=== PATIENT | female | born 1970 | race Caucasian/White ===

== ENCOUNTER 2019-11-21 11:42 | Emergency (ER) | payer BC, SELFPAY ==
[2019-11-21] VITALS (7 sets, daily range): BP systolic 94–153; BP diastolic 59–94; PULSE 62–214; RESP 16–28; TEMP 36.4–37.1; O2SAT 97–100; BMI 36.8
--- NOTE | 2019-11-21 11:49 | EKG12_ITS ---
Test Reason : Blood Pressure : / mmHG Vent. Rate : 081 BPM Atrial Rate : 081 BPM P-R Int : 144 ms QRS Dur : 088 ms QT Int : 400 ms P-R-T Axes : 051 073 044 degrees QTc Int : 464 ms Normal sinus rhythm Nonspecific ST abnormality Abnormal ECG Confirmed by MACKENZIE PITTS, CHEVY ([id number]), telegraph editor VERENA RUSS ([id number]) on 11/23/2019 2:13:10 PM Referred By: MANISH Confirmed By:GARY MANN MD
--- NOTE | 2019-11-21 11:49 | RAD_ITS ---
STUDY: X-RAY CHEST REASON FOR EXAM: Female, 49 years old. tachycardia TECHNIQUE: AP COMPARISON: None. FINDINGS: EKG leads project over the chest. The lungs are clear and expanded. There is no demonstrated pleural abnormality. Normal size heart. Normal mediastinum and tanner. Normal visualized pulmonary arteries. There is atherosclerotic tortuosity of the aortic arch and descending thoracic aorta. No acute bony process. There is no demonstrated abnormality of the visualized soft tissue structures of the upper abdomen. RAD/Chest 1 View (Portable) IMPRESSION: Nonacute portable x-ray examination of the chest. Electronically Signed: Michael Cortes MD (Brooks) at 12:37 EST , Service support ,
[2019-11-21] MEDS: Adenosine 6 MG/2 ML Syringe IV (11:53)
--- NOTE | 2019-11-21 11:53 | EKG12_ITS ---
Test Reason : Blood Pressure : / mmHG Vent. Rate : 210 BPM Atrial Rate : 104 BPM P-R Int : 000 ms QRS Dur : 084 ms QT Int : 248 ms P-R-T Axes : 000 078 171 degrees QTc Int : 463 ms Supraventricular tachycardia Marked ST abnormality, possible inferolateral subendocardial injury Abnormal ECG Confirmed by MACKENZIE PITTS, CHEVY ([id number]), newspaper managing editor CRESENCIO BAKER ([id number]) on 11/24/2019 1:31:01 PM Referred By: Confirmed By:GARY MANN MD
[2019-11-21] MEDS: Ondansetron 4 MG/2 ML Vial IV ×2 (11:57→13:53)
[2019-11-21] MEDS: 0.9% Normal Saline 1,000 ML 150 ML IV (12:08)
[2019-11-21 12:32] LABS: Absolute Lymphocyte Count 1.51 X10^3/uL (0.83-4.51); Absolute Neutrophil Count 8.6 X10^3/uL (2.0-7.7); Basophil# 0.06 X10^3/uL; Basophil% 0.5 % (0-1); Eosinophils% 0.9 % (0-5); Hematocrit 41.5 % (37-47); Hemoglobin 13.3 g/dL (12.0-15.0); Lymphocyte # 1.51 X10^3/ul (4.0); Lymphocyte % 13.6 % (19-41); Mean Corpuscular Hgb 29.6 pg (27.0-32.0); Mean Corpuscular Volume 92.2 fL (81-99); Mean Platelet Vol. 9.8 fl (6.2-12.0); Monocyte# 0.89 X10^3/uL; NRBC Flagged by Analyzer 0 % (0-5); Neutrophil # 8.55 X10^3/uL (2.7-7.7); Neutrophil % 76.7 % (47-70); Platelet Count 395 K/mm3 (150-450); RBC Distribution Width CV 13.2 % (11.6-14.6); RBC Distribution Width SD 44.7 fl (35.1-43.9); White Blood Count 11.1 K/mm3 (4.4-11.0)
[2019-11-21 12:59] LABS: Anion Gap 10 (5-15); BUN 16 mg/dL (7-18); Calcium,Total 8.8 mg/dL (8.5-10.1); Chloride 108 mmol/L (98-107); Creatinine, Serum 1.23 mg/dL (0.55-1.02); EST Glomerular Filtration Rate 50 mL/min (>60); Est Glom Filt Rate - Afr Amer 60 mL/min (>60); Estimated Creatinine Clearance 54.39 ml/min; Glucose 101 mg/dL (74-106); Potassium 3.8 mmol/L (3.5-5.1); Sodium Level 140 mmol/L (136-145); Thyroid Stim Hormone (TSH) 1.45 uIU/mL (0.358-3.74)
--- NOTE | 2019-11-21 13:29 | ED.VISSUMM ---
- ER Visit Summary Date of Service: 11/21/19 Chief Complaint: [Tachycardia and dizziness] History of Present Illness: The patient is a 49 F [does the emergency department with complaint of dizziness that started suddenly while at the breakfast table around 9 AM. Patient like her heart was racing. Patient felt very nauseated with it. Patient had similar episode last time in 2004 when she was diagnosed with SVT. Patient had been on a metoprolol type medication for years and then discontinued it. She has not been having chest pain with activity or shortness of breath with activity. She denies recent travel or surgery. She otherwise has no medical history.] Physical Examination: [HEENT-PERRLA, EOMI. Cranial nerves II through XII grossly intact. TMs clear. Mucous membranes moist. No adenopathy. Cardiovascular-regular and tachycardic with heart rate in the 210s Lungs-clear to auscultation, chest wall stable without crepitus or subcu emphysema Abdomen-normoactive bowel sounds, soft, nontender, no rebound or rigidity, no peritoneal signs. Extremities-intact ?4, normal range of motion, normal pulses, atraumatic] Test Results: [EKG obtained arrival showed SVT with a ventricular rate of 210 bpm. Repeat EKG after adenosine showed sinus rhythm with a ventricular rate of 81 bpm with some nonspecific ST changes noted. CBC with differential obtained was unremarkable. Chemistries unremarkable. TSH was normal at 1.45. Troponin was slightly elevated 0.227. Chest x-ray showed nothing acute.] Emergency Department Course and Treatment: [Patient was kept on a monitor tech. Discussed case with cardiology on-call who did not feel patient required admission or further work-up at this time. Patient was asked to be started on baby aspirin and metoprolol XL 50 mg daily. Patient also was instructed to follow-up with cardiology within the next week.] Treatment Plan: Follow-up with cardiology within the week. Patient will be started on metoprolol. Patient will be given Zofran for nausea. Patient advised to use 1 baby aspirin daily. [] Disposition: [Discharged home in stable condition] Impression: [Supraventricular tachycardia] This note was generated with woohoo mobile marketingation software. It may contain incorrect words, spelling, and punctuation that were not noted in review of the chart prior to signing ED Disposition - Plan for ED Patient: Referrals: Care Physician,No Primary [Primary Care Provider] -
--- NOTE | 2019-11-21 13:33 | DCINST.ED_ITS ---
ED Disposition - Plan for ED Patient: Instructions: Pat (P.A.T.) Prescriptions: Metoprolol(XL)Succ [Toprol Xl (Beta Jw)] 50 mg PO DAILY #30 tab Transmission Status: Pending to [facility] #30 - [place] Referrals: Care Physician,No Primary [Primary Care Provider] - Richard Ryan MD [STAFF PHYSICIAN] - 5-7 Days Additional Instructions: take a baby aspirin daily
--- NOTE | 2019-11-21 13:36 | DCINST.ED_ITS ---
ED Disposition - Plan for ED Patient: Instructions: Lizzy (P.A.T.) Prescriptions: Metoprolol(XL)Succ [Toprol Xl (Beta Jw)] 50 mg PO DAILY #30 tab Transmission Status: Received by [facility] - [place] Ondansetron [Zofran Odt] 4 mg PO Q8H PRN PRN #10 tab PRN Reason: Nausea Transmission Status: Pending to [facility] - [place] Referrals: Richard Ryan MD [STAFF PHYSICIAN] - 5-7 Days Care Physician,No Primary [Primary Care Provider] - Additional Instructions: take a baby aspirin daily
[2019-11-21] MEDS: Metoprolol(XL)Succ 50 MG Tablet PO (14:02)
[2019-11-21] MEDS: Aspirin 81 MG TAB.CHEW PO (14:02)
== END 2019-11-21 14:20 | disposition home or self-care (01) ==
LOC: ED 12:06
PROVIDERS: Emergency Provider Emergency Medicine
DX: I47.1 Supraventricular tachycardia (principal)
CPT/HCPCS: 71045; 80048; 84443; 84484; 85025; 93005; 96361; 96374; 96375; 96376; 99285; J7030; A4216; J0153; J2405

== ENCOUNTER → 2019-12-24 09:45 | Outpatient (CLI) | payer BC, SELFPAY ==
[2019-12-16 14:30] VITALS: BMI 37.9
--- NOTE | 2019-12-24 09:47 | ECHOD_ITS ---
Reason For Study: ARRHYTHMIA Procedure This was a 2D Doppler, Color Flow transthoracic echocardiogram. Exam performed in department. Left Ventricle Normal LV size. Left ventricular systolic function is normal. The estimated ejection fraction is 60 %. Stage 2 diastolic dysfunction. No regional wall motion abnormalities noted. Right Ventricle Normal RV size. Normal systolic function. Atria Normal left atrium. Normal right atrium. Mitral Valve Normal mitral valve. Tricuspid Valve Normal tricuspid valve. Mild (1+) tricuspid valve insufficiency. Pulmonary artery systolic pressure is 26 mmHg. Aortic Valve Normal aortic valve. Trisinus/trileaflet aortic valve. Pulmonic Valve Normal pulmonic valve. Great Vessels Normal aortic root. The pulmonary artery is normal size. Normal inferior vena cava. Pericardium/Pleural No pericardial effusion. MMode/2D Measurements & Calculations LVIDd: 4.8 cm IVSd: 0.91 cm Ao root diam: 2.9 cm LVIDs: 2.9 cm LVPWd: 0.91 cm RVDd: 4.2 cm FS: 40.0 % LAV(MOD-bp): 62.2 ml LA A4 area: 21.2 cm2 LA dimension(2D): 4.0 cm LAV(MOD-bp) Indexed: 28.5 ml/m2 LAV(MOD-sp2): 58.9 ml LAV(MOD-sp4): 58.8 ml RA A4 area: 12.2 cm2 Doppler Measurements & Calculations MV E max mark: 98.9 cm/sec Lat Peak E' Mark: 11.4 cm/sec Med Peak E' Mark: 10.6 cm/sec MV A max mark: 80.8 cm/sec E/E' lat: 8.7 E/E' med: 9.3 MV E/A: 1.2 Ao V2 max: 159.2 cm/sec LV V1 max: 120.8 cm/sec PA V2 max: 124.1 cm/sec Ao max P.2 mmHg LV V1 max P.9 mmHg PI end-d mark: 66.2 cm/sec TR max mark: 239.4 cm/sec TR max P.9 mmHg Interpretation Summary Normal LV size. Left ventricular systolic function is normal. The estimated ejection fraction is 60 %. Stage 2 diastolic dysfunction. Pulmonary artery systolic pressure is 26 mmHg. Ordering Physician: Richard Ryan Referring Physician: BENITO THOMPSON Performed By: Nicolle Moreno RDCS, RVT
== END ==
LOC: CVS 09:47
PROVIDERS: PCP Family Medicine; Referring Provider Internal Medicine Cardiovascular Disease; Visit Provider Internal Medicine Cardiovascular Disease
DX: I47.1 Supraventricular tachycardia (principal)
CPT/HCPCS: 93306; A4216

== ENCOUNTER 2020-02-14 14:51 | Emergency (ER) | payer BC, SELFPAY ==
[2019-12-16 14:30] VITALS: BMI 37.9
[2020-02-14 14:52] VITALS: BP 158/103; PULSE 90; RESP 20; TEMP 36.4; O2SAT 98; BMI 37.5
[2020-02-14 15:27] VITALS: BP 149/72; PULSE 84; RESP 15; O2SAT 98
--- NOTE | 2020-02-14 15:33 | CT_ITS ---
STUDY: CT BRAIN WITHOUT CONTRAST REASON FOR EXAM: Female, 49 years old. Dizziness. Hypertension RADIATION DOSAGE (If Supplied By Facility): CTDIvol = ( 44.99 ) mGy, DLP = ( 779.24 ) mGycm TECHNIQUE: Transaxial CT imaging of the brain was performed without administration of intravenous contrast material. Individualized dose optimization techniques were used for this CT. COMPARISON: None. FINDINGS: Normal soft tissue structures. Normal calvarium. No visualized dense artery sign. No hydrocephalus or midline shift. Normal size ventricles and extra-axial spaces for the patient''s age. There are mild areas of decreased attenuation within the white matter tracts of the supratentorial brain, consistent with microvascular disease changes. Normal basal ganglia and thalami. Normal brainstem. Normal cerebellum. There is no intracranial hemorrhage. There are no findings of an acute ischemic infarction. Normal visualized paranasal sinuses. CT/Brain/Head without Contrast IMPRESSION: 1. Mild chronic ischemic changes of the brain. Electronically Signed: Tono Steel MD at 16:57 EDT , Service support ,
--- NOTE | 2020-02-14 15:33 | EKG12_ITS ---
Test Reason : DIZZINESS Blood Pressure : / mmHG Vent. Rate : 072 BPM Atrial Rate : 072 BPM P-R Int : 146 ms QRS Dur : 092 ms QT Int : 386 ms P-R-T Axes : 049 064 044 degrees QTc Int : 422 ms Normal sinus rhythm Normal ECG Confirmed by MANNY DURON MD ([id number]), editor department CRESENCIO BAKER ([id number]) on 02/15/2020 1:06:51 PM Referred By: ANDRE Confirmed By:MANNY DURON MD
--- NOTE | 2020-02-14 15:34 | ED.VISSUMM ---
- ER Visit Summary Date of Service: 02/14/20 Chief Complaint: [Dizziness] History of Present Illness: The patient is a 49 F [ presents to the emergency department with complaint of dizziness that she has had since October when she had an episode of SVT for which she was seen in the emergency department. Patient states that ever since that time about 2 or 3 times a week she has been having episodes of dizziness where things feel like they are spinning around and round and she feels somewhat off balance. The episodes are not associated with tachycardia or chest pain. She denies any shortness of breath with it. Today while at the table sitting she had another episode of feeling quite dizzy and feeling like things were going around and round. She denies any nausea or vomiting. She denies any fever. She denies recent head injury or recent illness. Patient states that she mentioned this to her telegraph inspector but it was thought that maybe she was dehydrated but she states that she drinks about a gallon of water a day.] Physical Examination: [HEENT-PERRLA, EOMI. Cranial nerves II through XII grossly intact. TMs clear. Mucous membranes moist. No adenopathy. Cardiovascular-regular rate and rhythm without murmur or ectopy Lungs-clear to auscultation, chest wall stable without crepitus or subcu emphysema Abdomen-normoactive bowel sounds, soft, nontender, no rebound or rigidity, no peritoneal signs. Neuro bpxs-[id number]-[id number] and heel harding testing within normal limits, negative Romberg, negative , Fundi benign. Hallpike maneuver performed was negative for nystagmus and it did not reproduce her symptoms. Extremities-intact ?4, normal range of motion, normal pulses, atraumatic] Test Results: [CBC with differential was normal. Chemistries normal. Glucose was slightly elevated 131. TSH was normal at 2.26. Troponin was less than 0.015. EKG obtained showed sinus rhythm with a ventricular rate of 72 bpm with no acute ST segment changes. CT scan of the brain showed mild chronic ischemic changes otherwise nothing acute. Orthostatic vital signs were normal.] Emergency Department Course and Treatment: [She had an IV line established on arrival. She was given normal saline. Patient also given Antivert 25 mg tablet. Patient had good improvement in her symptoms with this.] Treatment Plan: [Patient will be given a prescription for Antivert. Patient will be given referral to ENT for follow-up if her symptoms persist.] Disposition: [Discharged home in stable condition] Impression: [Dizziness/vertigo] This note was generated with Kanbanize dictation software. It may contain incorrect words, spelling, and punctuation that were not noted in review of the chart prior to signing ED Disposition - Plan for ED Patient: Referrals: Todd Walker MD [Primary Care Provider] -
[2020-02-14 15:58] LABS: Absolute Neutrophil Count 5.7 X10^3/uL (2.0-7.7); Basophil# 0.05 X10^3/uL; Basophil% 0.6 % (0-1); Eosinophil# 0.19 X10^3/uL; Eosinophils% 2.2 % (0-5); Hematocrit 40.5 % (37-47); Hemoglobin 13.3 g/dL (12.0-15.0); Lymphocyte % 21.3 % (19-41); Mean Corp Hgb Conc 32.8 g/dL (32-36); Mean Corpuscular Hgb 30.8 pg (27.0-32.0); Mean Corpuscular Volume 93.8 fL (81-99); Mean Platelet Vol. 9.8 fl (6.2-12.0); Monocyte# 0.67 X10^3/uL; Monocyte% 7.9 % (0-10); NRBC Flagged by Analyzer 0 % (0-5); Neutrophil # 5.72 X10^3/uL (2.7-7.7); Neutrophil % 67.8 % (47-70); Platelet Count 333 K/mm3 (150-450); RBC Distribution Width CV 13.5 % (11.6-14.6); RBC Distribution Width SD 45.7 fl (35.1-43.9); Red Blood Count 4.32 M/mm3 (4.2-5.4); White Blood Count 8.5 K/mm3 (4.4-11.0)
[2020-02-14] MEDS: Meclizine HCl 25 MG Tablet PO (15:59)
[2020-02-14] MEDS: 0.9% Normal Saline 1,000 ML 150 ML IV (15:59)
[2020-02-14 16:17] LABS: Anion Gap 5 (5-15); BUN 12 mg/dL (7-18); BUN/Creat Ratio 15.6 RATIO (10-20); Calcium,Total 8.9 mg/dL (8.5-10.1); Chloride 110 mmol/L (98-107); Creatinine, Serum 0.77 mg/dL (0.55-1.02); EST Glomerular Filtration Rate 85 mL/min (>60); Est Glom Filt Rate - Afr Amer 103 mL/min (>60); Estimated Creatinine Clearance 86.89 ml/min; Glucose 131 mg/dL (74-106); Potassium 4.5 mmol/L (3.5-5.1); Sodium Level 141 mmol/L (136-145); Thyroid Stim Hormone (TSH) 2.26 uIU/mL (0.358-3.74)
[2020-02-14 16:19] VITALS: BP 152/78; BP 154/83; BP 172/109; PULSE 77; PULSE 83
[2020-02-14 17:20] VITALS: BP 148/74; PULSE 81; RESP 24; O2SAT 98
--- NOTE | 2020-02-14 17:34 | ED.DEP ---
ED Disposition - Plan for ED Patient: Instructions: ED Dizziness UKO, ED Vertigo Unspecified Prescriptions: Meclizine HCl [Antivert] 25 mg PO 4X/DAY PRN PRN #20 tab PRN Reason: Dizziness Prescription Printed Referrals: Todd Walker MD [Primary Care Provider] - Deyvi Fernandez MD [STAFF PHYSICIAN] - 3-5 Days
[2020-02-14 17:44] VITALS: BP 144/73; PULSE 78; RESP 23; O2SAT 96
== END 2020-02-14 17:52 | disposition home or self-care (01) ==
LOC: ED 17:04
PROVIDERS: Emergency Provider Emergency Medicine; PCP Family Medicine
DX: R42 Dizziness and giddiness (principal); I47.1 Supraventricular tachycardia
CPT/HCPCS: 70450; 80048; 84443; 84484; 85025; 93005; 96360; 96361; 99285

== ENCOUNTER → 2020-03-08 09:36 | Outpatient (CLI) | payer BC, SELFPAY ==
[2020-02-14 14:52] VITALS: BMI 37.5
--- NOTE | 2020-03-08 10:00 | MRI_ITS ---
STUDY: MRI BRAIN WITH AND WITHOUT CONTRAST (ATTENTION INTERNAL AUDITORY CANALS - I.A.C.''s) REASON FOR EXAM: Female, 49 years old. Dizzines X 4 MONS, ABNORMAL BALANCE TEST TECHNIQUE: Standardized multiplanar fat and water weighted pulse sequences were obtained. IV DOTAREM 22CC was administered for the contrast portion of the examination. COMPARISON: None. FINDINGS: Normal bilateral temporal bones. Normal bilateral internal auditory canals. There is no demonstrated intracanalicular or cisternal vestibular schwannoma (acoustic neuroma). There is no enhancement of the bilateral VIIth or VIIIth cranial nerves. Normal bilateral cochlea, vestibules and semicircular canals. Normal size of the ventricles and extra-axial spaces for the patient''s age. Normal white matter tracts of the supratentorial brain. Normal bilateral basal ganglia. Normal thalami. Normal flow voids within the major intracranial circulation suggesting patency by spin echo criteria. Normal venous enhancement. There is no enhancing intra-axial or extra-axial abnormality. There is no extra-axial fluid accumulation. Normal sella turcica, pituitary gland, infundibular stalk, optic chiasm and hypothalamus. Normal tectal plate and pineal gland. Normal midbrain, epi and medulla. Normal cerebellum. Normal basal cisterns. No demonstrated orbital abnormality, within the constraints of a routine brain study. Normal visualized paranasal sinuses. MRI/Brain W/WO Contrast IMPRESSION: Normal unenhanced and enhanced MRI of the bilateral internal auditory canals (I.A.C''s). Electronically Signed: Izabela Mcgowan MD at 10:39 EDT Tel , Service support ,
== END ==
PROVIDERS: PCP Family Medicine; Referring Provider Otolaryngology; Visit Provider Otolaryngology
DX: R42 Dizziness and giddiness (principal)
CPT/HCPCS: 70553; A9575

== ENCOUNTER 2020-05-23 14:00 | Outpatient (RCR) | payer BC, SELFPAY ==
--- NOTE | 2020-03-23 11:57 | HP.PTEVAL ---
Patient's Visit Information LINWOOD MCCAIN is a 49 year old F referred to Physical Therapy by Dr. Deyvi Fernandez MD with a diagnosis of dizziness. Date of Evaluation: 03/23/20 Physical Therapist: PABLO Loya - Visit Plan Frequency: 1-2x /Week Duration: 6 Weeks Plan: 1-2X/ week for 4-6 weeks for VOR exercises (vertical smooth pursuit, horizontal VOR X 1) and then progress to standing VOR exercises and dynamic VOR and vestibular input exercises with HEP. May test FGA for a baseline if veering continues - Subjective Pt reports that at then end of Sep she had a strange virus... went to twice and they were not sure if it was a virus or what.... she was having night sweats and low grade fever for 12 days. She had tons of head congestion. Third week in Oct she had a SVT and had a dizzy spell and has been dizzy since. She also had another SVT [address] Ryan said she needed a cardiac abalation and that was done March 14. There are days that she does not have the dizziness but there are somedays she can hardly do anything. She notices that if the pressure in her head changes that increases the dizziness. She saw and ENT and did a balance test.... L showed some abnormalities and did an MRI and did not show anything. Sometimes she does notice when she rolls to her R she will get dizziness that will last a few minutes and she feels like she is circling. Standing in the driveway talking to neighbors she felt like she was going to fall the R side. She does not have FLORES. She has some seasonal allergies.... never diagnosed but possible. She has never been a fan of spinny rides. Some ear ringing....comes and goes. she has a stragne whistle sound in her ear. She does not truely feel that her head congestion never went away. She would say that her symptoms are there 3-4 times/ week. Worse with standing. Worse on uneven ground. Riding in a car and trying to read she will get dizzy. No neck pain. - Objective -B Hallpike B. Increase nausea with horizontal smooth pursuit X 45 seconds. Vertcal smooth pursuit pt was only able to stay focused until about 20 seconds and then she would look down when pen was still up high. No dizziness and no nausea. Some pressure behind my eyes. VOR X 1 horizontal.... nauseated and dizzy within 25 seconds at a slow head movment. VOR X 1 vertical.... no nausea but a little dizzy when stopped the movement. Pt had increase veering with walking more to the R. Pt had increase unsteadiness with gait with horizontal and vertical head movements - Goals Goal 1:: I HEP Goal Time Frame: 4-6 Weeks Goal 2:: Be able to complete horizontal VOR X 1 in standing without feeling nausea for 1 minute Goal Time Frame: 4-6 Weeks Goal 3:: Be able to walk 150+ feet with head movements without veering or dizziness Goal Time Frame: 4-6 Weeks Goal 4:: Be able to complete saccades vertically for 1 minute staying focused on moving object. Goal Time Frame: 4-6 Weeks - Rehabilitation Potential Rehabilitation Potential: Good - Anticipated Interventions Patient/Client Instruction: Educate patient on: Condition, Plan of Care For the Purpose of:: To improve muscle performance and motor function, To improve ability to perform ADL's, To increase tolerance to activity/condition/position, To improve performance and independence with ADL's, To improve ability of physical actions for home/community/work/leisure, To improve gait and locomotor functions, To improve health of tissue, To increase flexibility/ROM, To improve endurance, To improve balance Therapeutic Exercise to Include: Strength training, Endurance training, Balance training, Gait and locomotor training, Active ROM For the Purpose of:: To improve muscle performance and motor function, To improve ability to perform ADL's, To increase tolerance to activity/condition/position, To improve performance and independence with ADL's, To improve health of tissue, To increase flexibility/ROM, To improve endurance, To improve balance, To improve safety with gait Functional Training to Include: Gait training For the Purpose of:: To improve gait and locomotor functions Thank you for the opportunity to evaluate your patient. For Medicare and Medicare HMO plans, please review the plan of care and approve it. It will need to be FAXED BACK to us at [phone] for Medicare purposes. For Medicare only, by signing this I certify the plan of care. Please let me know if there are questions or concerns regarding this plan of care. Physician Signature: Date:
--- NOTE | 2020-05-23 14:17 | HP.PTDCSUM ---
It has been my pleasure to treat LINWOOD MCCAIN referred by Dr. Deyvi Fernandez MD, with the diagnosis of dizziness for a total of 7 visit(s). Discharge Date: 05/23/20 Please see the following information for a summary of their discharge status. Subjective: She gets the dizzy spells mostly in the dark or when she spins quickly it will happen and she grabs a hold of something and it will go away. It is a feeling that she will fall over but once she steadies herself she is ok. That occurs about 2 or 3 X/ week. She stands on the pillow and closes her eyes and walks with holding her gaze on an object and walking. % Improvement: 98 Objective/Function: VOR X 1 vertical and horizontal, saccades (dynamic and static) X 1 min each with not dizziness. Able to stand on black foam X 1 min with EC with no dizziness or LOB Goal 1:: I HEP Goal Progress: Goal Met Goal 2:: Be able to complete horizontal VOR X 1 in standing without feeling nausea for 1 minute Goal Progress: Goal Met Goal 3:: Be able to walk 150+ feet with head movements without veering or dizziness Goal Progress: Goal Met Goal 4:: Be able to complete saccades vertically for 1 minute staying focused on moving object. Goal Progress: Goal Met Plan: DC PT to HEP Discharge Comments: DC PT If there are questions or concerns regarding this patient's physical therapy, please feel free to call me at [phone]. Thank you for the referral of this patient. Sincerely, PABLO Loya
== END 2020-05-23 19:00 | disposition home or self-care (01) ==
LOC: PT 14:00
PROVIDERS: PCP Family Medicine; Referring Provider Otolaryngology; Visit Provider Otolaryngology
DX: R42 Dizziness and giddiness (principal)
CPT/HCPCS: 97110; 97161; 97530

== ENCOUNTER → 2021-05-29 10:07 | Outpatient (CLI) | payer BC, SELFPAY | PROVIDERS: PCP Family Medicine; Referring Provider Internal Medicine Cardiovascular Disease; Visit Provider Internal Medicine Cardiovascular Disease | DX: I47.1 Supraventricular tachycardia (principal); I10 Essential (primary) hypertension | CPT/HCPCS: 93225; 93226 ==

== ENCOUNTER 2021-08-18 00:21 | Emergency (ER) | payer BC, SELFPAY ==
[2021-08-18 00:22] VITALS: BP 160/77; PULSE 72; RESP 18; TEMP 35.9; O2SAT 93; BMI 35.2
[2021-08-18 00:25] VITALS: BP 160/77; PULSE 74; RESP 18; TEMP 35.9; O2SAT 93
[2021-08-18 00:36] VITALS: BP 160/77; PULSE 74; RESP 18; TEMP 35.9; O2SAT 93
--- NOTE | 2021-08-18 00:40 | RAD_ITS ---
STUDY: X-RAY CHEST REASON FOR EXAM: Female, 50 years old. covid 19 TECHNIQUE: Single AP portable view of the chest. COMPARISON: 11/21/2019. FINDINGS: There is mild left lower lung atelectasis, remainder of the lung [place] are clear. Subtle patchy groundglass density within the right midlung field which may indicate pneumonitis. There is no demonstrated pleural abnormality. Normal size heart. Normal mediastinum and tanner. Normal visualized pulmonary arteries. Normal visualized aortic arch and descending thoracic aorta. Normal visualized thoracic spine. Normal visualized ribs, clavicles, and shoulders. There is no demonstrated abnormality of the visualized soft tissue structures of the upper abdomen. RAD/Chest 1 View (Portable) IMPRESSION: Left mid lower lung atelectasis. Possible right midlung pneumonitis. Electronically Signed: Nessa Khan MD at 1:10 EST , Service support ,
--- NOTE | 2021-08-18 00:41 | EDS_ITS ---
HPI History of Present Illness Chief Complaint: Diarrhea Informant: patient Narrative Narrative: 50-year-old female presents to the emergency department at the beginning of day 4 of COVID-19 infection. She states that she is feeling very fatigued persistent nausea despite Zofran and experiencing diarrhea. She was vaccinated with the [employer] vaccine several months ago. She notes fevers headaches myalgias. PFSH PFS Medical History AVNRT (AV ortiz re-entry tachycardia) Essential hypertension SVT (supraventricular tachycardia) Home Medications cetirizine 10 mg PO QHS 02/14/20 [History Last Taken Unknown] meclizine 25 mg PO 4X/DAY PRN PRN #20 tab 02/14/20 [Rx Last Taken Unknown] lisinopril 10 mg tablet 10 mg PO DAILY #90 tab 05/23/21 [Rx Last Taken Unknown] norethin-ethinyl estradiol-iron 0.8 mg-25 mcg(24)/75 mg(4) chew tablet 1 tab PO DAILY tab 05/23/21 [History Last Taken Unknown] albuterol sulfate [Ventolin HFA] 2 puff INHALATION Q4H PRN PRN #1 inhaler 08/18/21 [Rx Last Taken Unknown] dexamethasone 6 mg PO DAILY #7 tab 08/18/21 [Rx Last Taken Unknown] promethazine 25 mg PO Q8H PRN PRN #15 tablet 08/18/21 [Rx Last Taken Unknown] Allergy/AdvReac Type Severity Reaction Status Date / Time Isothiazolinones Allergy Rash Verified 05/23/21 11:12 Penicillins Allergy Rash Verified 05/23/21 11:12 Family History Mother Hypertension Father Hypertension Surgical History H/O wisdom tooth extraction History of radiofrequency ablation procedure for cardiac arrhythmia (03/14/20) History of tonsillectomy Hx of tubal ligation Social History Smoking Status: Never smoker alcohol intake: never substance use type: does not use caffeine: No ROS ROS ED Constitutional Constitutional ED: Reports chills, fever(s) and sweats; Denies weight loss Eyes Eyes: Denies change in vision or diplopia ENT ENT ED: Reports rhinorrhea; Denies ear pain or sore throat Cardiovascular Cardiovascular: Denies chest pain, orthopnea, palpitations or racing heartbeat Respiratory/Chest Respiratory/Chest: Reports cough; Denies dyspnea or orthopnea Gastrointestinal Gastrointestinal: Reports diarrhea and nausea; Denies abdominal pain or vomiting Genitourinary Genitourinary ED: Denies dysuria, hematuria or urinary frequency Musculoskeletal Musculoskeletal: Reports myalgias; Denies arthralgias Integumentary Denies abscess or rash Neurologic Neurologic: Reports headache(s); Denies weakness Psychiatric Psychiatric: Denies anxiety, depression, suicidal ideation or suicidal thoughts Endocrine Endocrinology: Denies polydipsia, polyphagia or polyuria Allergic/Immunologic Allergic/Immunologic ED: Denies mouth swelling, tongue swelling or urticaria EXAM Physical Exam Const Vital Signs: 08/18/21 00:22 08/18/21 00:25 08/18/21 00:36 Temperature 96.6 F L 96.6 F L 96.6 F L Temperature Source Temporal Temporal Temporal Pulse Rate 72 74 74 Respiratory Rate 18 18 18 Blood Pressure 160/77 H 160/77 H 160/77 H Blood Pressure Mean 104 104 104 Pulse Ox 93 93 93 Oxygen Delivery Method Room Air Room Air Room Air Positive well nourished, well developed and obese General Appearance ED: well developed Nutritional Appearance: obese HEENT Reports normocephalic, head/scalp atraumatic, TM's clear and moist mucous membranes Negative for trauma Tympanic Membrane ED: Yes TM's clear Eyes PERRL and EOMs intact bilaterally Neck no lymphadenopathy, supple and no JVD Resp normal respiratory effort and clear to auscultation bilaterally Cardio regular rate, regular rhythm and no murmurs GI normal to inspection, nondistended, normoactive bowel sounds and non-tender Palpation: soft Back/Spine no CVA tenderness and normal ROM Extremity normal to inspection General Extremety ED: Negative for edema General Extremity: Negative for edema Neuro oriented x3 and CN's II-XII intact bilaterally Sensorium / Orientation: alert Motor Exam: strength 5/5 throughout Psych mental status grossly normal Mood & Affect: Negative for depressed or tearful Skin no rashes or lesions noted and no wounds MDM MDM MDM Narrative Medical decision making narrative: My interpretation of the chest x-ray is multifocal areas of pneumonitis. White count low at 3.6. Platelet count is 248. CMP glucose of 109. Patient received a dose of Decadron and Reglan. The patient clinically is stable not requiring supplemental oxygen and I believe can be discharged home. I did discuss with her that as she is early in her course and she already has evidence of pneumonitis she may get worse. I will write for her to have Decadron and albuterol as well as some Phenergan. Patient to monitor her breathing return if worsening or concerns I will also refer her to pulmonary for monoclonal antibody treatment. Lab Data Attestation: I reviewed the patient's lab results. Labs: Laboratory Results - last 24 hr 08/18/21 08/18/21 01:00 01:00 WBC 3.6 L RBC 4.63 Hgb 13.4 Hct 41.4 MCV 89.4 MCH 28.9 MCHC 32.4 RDW Std Deviation 43.1 RDW Coeff of Christiano 13.2 Plt Count 248 MPV 9.9 Immature Gran % (Auto) 0.600 Neut % (Auto) 54.1 Lymph % (Auto) 26.1 [place] % (Auto) 18.6 H Eos % (Auto) 0.0 Baso % (Auto) 0.6 Absolute Neuts (auto) 2.0 Absolute Lymphs (auto) 0.94 Nucleated RBC % 0 Sodium 138 Potassium 3.7 Chloride 108 H Carbon Dioxide 23.0 Anion Gap 7 BUN 13 Creatinine 0.75 Estim Creat Clear Calc 94.83 Est GFR (MDRD) Af Amer 105 Est GFR (MDRD) Non-Af 87 BUN/Creatinine Ratio 17.3 Glucose 109 H Calcium 8.8 Total Bilirubin 0.30 AST 47 H ALT 51 Alkaline Phosphatase 41 L Total Protein 7.6 Albumin 3.4 Globulin 4.2 Albumin/Globulin Ratio 0.8 L Radiography Diagnostic Testing: Clinical Impression(s) from Imaging Studies Chest X-Ray 08/18/21 00:40 IMPRESSION: Left mid lower lung atelectasis. Possible right midlung pneumonitis. Electronically Signed: Nessa Khan MD at 1:10 EST , Service support , Discharge Plan Triage Chief Complaint: Diarrhea ED Provider: Iraj Leigh Dx/Rx/DC Orders Clinical Impression: COVID-19, Nausea, Diarrhea Instructions: Coronavirus Disease 2019 (COVID-19): Caring for Yourself or Others Prescriptions: New dexamethasone 6 MG tablet 6 mg PO DAILY Qty: 7 RF: 0 promethazine [promethazine] 25 MG tablet 25 mg PO Q8H PRN PRN (Reason: Nausea) Qty: 15 RF: 0 albuterol sulfate [Ventolin HFA] 1 INHALER inhaler 2 puff inhalation Q4H PRN PRN (Reason: Wheezing) Qty: 1 RF: 0 No Action noreth-ethinyl estradiol-iron 0.8mg-25mcg(24) and 75 mg (4) tablet,chewable 1 tab PO DAILY RF: 0 lisinopril 10 mg tablet 10 mg PO DAILY Qty: 90 RF: 3 cetirizine 10 MG tablet 10 mg PO QHS RF: 0 meclizine 25 MG tablet 25 mg PO 4X/DAY PRN PRN (Reason: Dizziness) Qty: 20 RF: 0 Primary Care Provider: Care Physician,No Primary Referrals: Todd Walker MD [NON-STAFF] - As Needed Disposition Disposition: Home, Self Care
[2021-08-18] MEDS: dexAMETHasone 4 MG Tablet 6 MG PO (01:03)
[2021-08-18] MEDS: Metoclopramide 10 MG/2 ML Vial IV (01:03)
[2021-08-18 01:17] LABS: Absolute Lymphocyte Count 0.94 X10^3/uL (0.83-4.51); Basophil# 0.02 X10^3/uL; Basophil% 0.6 % (0-1); Hematocrit 41.4 % (37-47); Hemoglobin 13.4 g/dL (12.0-15.0); Lymphocyte # 0.94 X10^3/ul (0.83-4.51); Lymphocyte % 26.1 % (19-41); Mean Corp Hgb Conc 32.4 g/dL (32-36); Mean Corpuscular Hgb 28.9 pg (27.0-32.0); Mean Corpuscular Volume 89.4 fL (81-99); Mean Platelet Vol. 9.9 fl (6.2-12.0); Monocyte# 0.67 X10^3/uL; Monocyte% 18.6 % (0-10); NRBC Flagged by Analyzer 0 % (0-5); Neutrophil # 1.95 X10^3/uL (2.7-7.7); Neutrophil % 54.1 % (47-70); Platelet Count 248 K/mm3 (150-450); RBC Distribution Width CV 13.2 % (11.6-14.6); RBC Distribution Width SD 43.1 fl (35.1-43.9); Red Blood Count 4.63 M/mm3 (4.2-5.4); White Blood Count 3.6 K/mm3 (4.4-11.0)
[2021-08-18 01:35] LABS: ALB/GLOB Ratio 0.8 RATIO (0.9-2.4); AST(SGOT) 47 U/L (15-37); Alanine Aminotransfer ALT/SGPT 51 U/L (13-56); Albumin, Serum 3.4 g/dL (3.2-5.0); Alkaline Phosphatase 41 U/L (45-117); Anion Gap 7 (5-15); BUN 13 mg/dL (7-18); BUN/Creat Ratio 17.3 RATIO (10-20); Calcium,Total 8.8 mg/dL (8.5-10.1); Chloride 108 mmol/L (98-107); Creatinine, Serum 0.75 mg/dL (0.55-1.02); EST Glomerular Filtration Rate 87 mL/min (>60); Est Glom Filt Rate - Afr Amer 105 mL/min (>60); Estimated Creatinine Clearance 94.83 ml/min; Globulin 4.2 g/dL (2.2-4.2); Glucose 109 mg/dL (74-106); Potassium 3.7 mmol/L (3.5-5.1); Protein, Total 7.6 g/dL (6.4-8.2); Sodium Level 138 mmol/L (136-145)
== END 2021-08-18 01:54 | disposition home or self-care (01) ==
PROVIDERS: Emergency Provider Emergency Medicine
DX: U07.1 COVID-19 (principal); R11.0 Nausea; R19.7 Diarrhea, unspecified; E66.9 Obesity, unspecified
CPT/HCPCS: 71045; 80053; 85025; 96374; 99284; A4216

== ENCOUNTER 2021-09-06 15:28 | Emergency (ER) | payer BC, SELFPAY ==
[2021-09-06 15:30] VITALS: BP 140/86; PULSE 104; RESP 20; TEMP 36.4; O2SAT 99; BMI 37.5
--- NOTE | 2021-09-06 15:43 | EKG12_ITS ---
Test Reason : Blood Pressure : / mmHG Vent. Rate : 092 BPM Atrial Rate : 092 BPM P-R Int : 154 ms QRS Dur : 090 ms QT Int : 368 ms P-R-T Axes : 015 051 028 degrees QTc Int : 455 ms Normal sinus rhythm Normal ECG Confirmed by BRANDON PITTS, LD ([id number]), editor sound VERENA RUSS ([id number]) on 09/08/2021 1:25:53 PM Referred By: KAMILLA Confirmed By:LD TAYLOR MD
--- NOTE | 2021-09-06 15:44 | EDS_ITS ---
HPI History of Present Illness Chief Complaint: Shortness of Breath Detail of Chief Complaint: Shortness of breath and elevated heart rate Informant: patient Narrative Narrative: Patient presents to the emergency department with complaint of elevated resting heart rate today between 100to 110. Patient states that she had Covid symptoms starting August 15 and was diagnosed with Covid on August 17. Patient also had a monoclonal antibody infusion on August 27. Patient denies any chest pain although she does feel achy in her chest and has since she developed Covid infection. She does have history remotely of SVT for which she had an ablation in February 2020 and has not had any issues since then. Patient has not had had history of PE or DVT. She denies fever or cough. [facility] Medical History AVNRT (AV ortiz re-entry tachycardia) Essential hypertension SVT (supraventricular tachycardia) Home Medications cetirizine 10 mg PO QHS 02/14/20 [History Last Taken Unknown] lisinopril 10 mg tablet 10 mg PO DAILY #90 tab 05/23/21 [Rx Last Taken Unknown] albuterol sulfate [Ventolin HFA] 2 puff INHALATION Q4H PRN PRN #1 inhaler 08/18/21 [Rx Last Taken Unknown] Allergy/AdvReac Type Severity Reaction Status Date / Time Isothiazolinones Allergy Rash Verified 09/06/21 15:29 Penicillins Allergy Rash Verified 09/06/21 15:29 Family History Mother Hypertension Father Hypertension Surgical History H/O wisdom tooth extraction History of radiofrequency ablation procedure for cardiac arrhythmia (03/14/20) History of tonsillectomy Hx of tubal ligation Social History Smoking Status: Never smoker alcohol intake: never substance use type: does not use caffeine: No ROS ROS ED Constitutional Constitutional ED: Reports systems reviewed and no addt'l complaints, except as documented; Denies body ache(s), change in weight or chills Eyes Eyes: Denies acute decrease in peripheral vision, change in vision, double visi on or loss of vision ENT ENT ED: Reports none; Denies ear pain, lip swelling, loss taste/smell, neck pa in, otalgia or sore throat Cardiovascular Cardiovascular: Reports none and racing heartbeat; Denies abdominal pain, chest pain with activity, leg edema, lightheadedness, palpitations, rapid heart rate or syncope Respiratory/Chest Respiratory/Chest: Reports none and dyspnea; Denies change in mental status, dry cough, hemoptysis, shortness of breath at rest or shortness of breath with exertion Gastrointestinal Gastrointestinal: Reports none; Denies abdominal pain, change in stool character, diarrhea, hematemesis, hematochezia, melena, rectal bleeding or vomiting Genitourinary Genitourinary ED: Reports none; Denies abdominal discomfort, anuria, dysuria, genital pain or polyuria Musculoskeletal Musculoskeletal: Reports none; Denies arthralgias, back pain, difficulty walking, extremity pain, muscle weakness or myalgias Integumentary Reports none; Denies abscess or rash Neurologic Neurologic: Reports none; Denies abnormal gait, confusion, focal weakness, frequent falls, headache(s), loss of vision, numbness, paresthesias, radicular pain, vertigo or weakness Psychiatric Psychiatric: Reports systems reviewed and no addt'l complaints, except as documented and none; Denies behavioral changes, confusion, difficulty concentrating, hallucinations, suicidal ideation, tactile hallucinations or visual hallucinations Endocrine Endocrinology: Denies none, cold intolerance, excessive sweating, fatigue or heat intolerance Hematologic/Lymphatic Hematologic/Lymphatic: Reports none; Denies anemia, easy bleeding or easy bruising Allergic/Immunologic Allergic/Immunologic ED: Denies as per HPI, none, lip swelling, mouth swelling, throat swelling, tongue swelling or hives EXAM Physical Exam Const Vital Signs: 09/06/21 15:30 09/06/21 15:52 09/06/21 16:33 Temperature 97.5 F L 97.5 F L Temperature Source Temporal Temporal Pulse Rate 104 H 113 H 95 Respiratory Rate 20 H 20 H 20 H Respiratory Effort Non-Labored Short of Breath Respiratory Depth Normal Respiratory Pattern Normal Blood Pressure 140/86 H 117/75 Blood Pressure Mean 104 89 Pulse Ox 99 100 100 Oxygen Delivery Method Room Air Room Air Room Air Positive well nourished and well developed General Appearance ED: well developed and NAD HEENT Reports TM's clear and moist mucous membranes normocephalic and atraumatic; Negative for trauma or tenderness Tympanic Membrane ED: Yes TM's clear Eyes PERRL and EOMs intact bilaterally General Eye ED: Negative for pale conjunctiva or scleral icterus Neck no lymphadenopathy, supple and no JVD General: Negative for tenderness Chest Wall inspection of chest normal and palpation of chest normal Chest: Negative for tenderness Resp normal respiratory effort and clear to auscultation bilaterally Effort and Inspection: Negative for respiratory distress or pain with movement Auscultation: Negative for rhonchi, wheezes or diminished lung sounds Cardio regular rate, regular rhythm, S1 normal heart sound, S2 normal heart sound and no murmurs Peripheral Pulses: pulses 2+ throughout GI normal to inspection, nondistended, normoactive bowel sounds, soft to palpation, non-tender, non-distended and no masses Back/Spine no CVA tenderness and no thoracic nor lumbar tenderness Extremity normal to inspection General Extremety ED: Negative for edema General Extremity: Negative for edema Neuro oriented x3, CN's II-XII intact bilaterally, no sensory deficits noted and gait normal Sensorium / Orientation: awake, alert, oriented to person, oriented to place and oriented to time Motor Exam: strength 5/5 throughout and strength abnormal Psych mental status grossly normal Skin no rashes or lesions noted and no wounds MDM MDM MDM Narrative Medical decision making narrative: IV line established on arrival. EKG obtained and was unremarkable. Patient's work-up otherwise unremarkable. At this point etiology of her resting tachycardia and dyspnea unclear although I suspect likely related to Covid. Patient advised to follow-up with primary care physician 5 to 7 days. She is advised to return if increasing shortness of breath or condition should worsen anyway. Lab Data Attestation: I reviewed the patient's lab results. Labs: Laboratory Results - last 24 hr 09/06/21 09/06/21 09/06/21 15:58 15:58 15:58 WBC 9.2 RBC 4.62 Hgb 13.5 Hct 41.4 MCV 89.6 MCH 29.2 MCHC 32.6 RDW Std Deviation 45.8 H RDW Coeff of Christiano 14.1 Plt Count 274 MPV 9.9 Immature Gran % (Auto) 0.400 Neut % (Auto) 63.9 Lymph % (Auto) 23.3 Harris % (Auto) 9.2 Eos % (Auto) 2.5 Baso % (Auto) 0.7 Absolute Neuts (auto) 5.9 Absolute Lymphs (auto) 2.14 Nucleated RBC % 0 Differential Comment SCANNED D-Dimer Quant (PE/DVT) <= 0.27 Sodium 142 Potassium 4.0 Chloride 107 Carbon Dioxide 25.0 Anion Gap 10 BUN 7 Creatinine 0.69 Estim Creat Clear Calc 95.91 Est GFR (MDRD) Af Amer 117 Est GFR (MDRD) Non-Af 96 BUN/Creatinine Ratio 10.2 Glucose 95 Calcium 9.4 Troponin I High Sens < 3 L Radiography Chest X-Ray - ED: 1 View Diagnostic Testing: Clinical Impression(s) from Imaging Studies Chest X-Ray 09/06/21 17:00 IMPRESSION: Normal x-ray examination of the chest. Electronically Signed: Thaddeus Butts DO at 17:13 EST Tel [phone], Service support , 1 view chest x-ray obtained interpreted by myself as no acute disease process. Radiology was in agreement. EKG Initial EKG: Attestation: I personally reviewed and interpreted this EKG as follows: Comments: Sinus rhythm with a ventricular rate of 92 bpm with no acute ST segment changes. Discharge Plan Triage Chief Complaint: Shortness of Breath ED Provider: Roxanne Martin Dx/Rx/DC Orders Clinical Impression: Acute dyspnea, Tachycardia Instructions: Discharge Instructions for ..., ED Dyspnea Prescriptions: No Action lisinopril 10 mg tablet 10 mg PO DAILY Qty: 90 RF: 3 cetirizine 10 MG tablet 10 mg PO QHS RF: 0 albuterol sulfate [Ventolin HFA] 1 INHALER inhaler 2 puff inhalation Q4H PRN PRN (Reason: Wheezing) Qty: 1 RF: 0 Referrals: [facility] [Other] Activity Restrictions/Additional Instructions: See your primary care physician in 3 to 5 days. Return to the ER if increasing shortness of breath or chest pain or racing heart. Disposition Disposition: Home, Self Care
[2021-09-06 15:52] VITALS: PULSE 113; RESP 20; O2SAT 100
[2021-09-06] MEDS: 0.9% Normal Saline 1,000 ML 150 ML IV (16:01)
[2021-09-06 16:07] LABS: Absolute Lymphocyte Count 2.14 X10^3/uL (0.83-4.51); Absolute Neutrophil Count 5.9 X10^3/uL (2.0-7.7); Basophil# 0.06 X10^3/uL; Basophil% 0.7 % (0-1); Eosinophil# 0.23 X10^3/uL; Eosinophils% 2.5 % (0-5); Hematocrit 41.4 % (37-47); Hemoglobin 13.5 g/dL (12.0-15.0); Lymphocyte # 2.14 X10^3/ul (0.83-4.51); Lymphocyte % 23.3 % (19-41); Mean Corp Hgb Conc 32.6 g/dL (32-36); Mean Corpuscular Hgb 29.2 pg (27.0-32.0); Mean Corpuscular Volume 89.6 fL (81-99); Mean Platelet Vol. 9.9 fl (6.2-12.0); Monocyte# 0.84 X10^3/uL; Monocyte% 9.2 % (0-10); NRBC Flagged by Analyzer 0 % (0-5); Neutrophil # 5.87 X10^3/uL (2.7-7.7); Neutrophil % 63.9 % (47-70); POSITIVE COUNT YES; Platelet Count 274 K/mm3 (150-450); RBC Distribution Width CV 14.1 % (11.6-14.6); RBC Distribution Width SD 45.8 fl (35.1-43.9); Red Blood Count 4.62 M/mm3 (4.2-5.4); White Blood Count 9.2 K/mm3 (4.4-11.0)
[2021-09-06 16:11] LABS: Differential Indicated SCAN CRITERIA MET
--- NOTE | 2021-09-06 16:11 | CM.ED ---
SW Note Patient demographic sheet initially said patient had no PCP. However, patient's reported that her PCP is Nicho Douglas at [facility] located [address] [address]. Plan: Patient has a PCP Iram MARIE
[2021-09-06 16:33] VITALS: BP 117/75; PULSE 95; RESP 20; TEMP 36.4; O2SAT 100
[2021-09-06 16:39] LABS: Anion Gap 10 (5-15); BUN 7 mg/dL (7-18); BUN/Creat Ratio 10.2 RATIO (10-20); Calcium,Total 9.4 mg/dL (8.5-10.1); Chloride 107 mmol/L (98-107); Creatinine, Serum 0.69 mg/dL (0.55-1.02); EST Glomerular Filtration Rate 96 mL/min (>60); Est Glom Filt Rate - Afr Amer 117 mL/min (>60); Estimated Creatinine Clearance 95.91 ml/min; Glucose 95 mg/dL (74-106); Sodium Level 142 mmol/L (136-145); Troponin-I HS < 3 pg/mL (3.0-54.0)
[2021-09-06 16:49] LABS: Differential Comment SCANNED
[2021-09-06 16:50] LABS: D-Dimer Quantitative (DVT/PE) <= 0.27 FEU/ug/m (0.27-0.49)
--- NOTE | 2021-09-06 17:00 | RAD_ITS ---
STUDY: X-RAY CHEST REASON FOR EXAM: Female, 50 years old. Dyspnea TECHNIQUE: Frontal view COMPARISON: 08/18/2021 FINDINGS: The lungs are clear and expanded. There is no demonstrated pleural abnormality. Normal size heart. Normal mediastinum and tanner. Normal visualized pulmonary arteries. Normal visualized aortic arch and descending thoracic aorta. Normal visualized thoracic spine. Normal visualized ribs, clavicles, and shoulders. There is no demonstrated abnormality of the visualized soft tissue structures of the upper abdomen. RAD/Chest 1 View (Portable) IMPRESSION: Normal x-ray examination of the chest. Electronically Signed: Thaddeus Butts DO at 17:13 EST Tel [phone], Service support ,
[2021-09-06 17:32] VITALS: BP 117/75; PULSE 95; RESP 19; TEMP 37; O2SAT 98
== END 2021-09-06 17:33 | disposition home or self-care (01) ==
PROVIDERS: Emergency Provider Emergency Medicine
DX: R06.00 Dyspnea, unspecified (principal); R00.0 Tachycardia, unspecified; I10 Essential (primary) hypertension; Z86.16 Personal history of COVID-19; Z79.899 Other long term (current) drug therapy
CPT/HCPCS: 71045; 80048; 84484; 85025; 85379; 93005; 99285; J7030; A4216

== ENCOUNTER 2022-09-02 02:38 | Emergency (ER) | payer BC, SELFPAY ==
[2022-09-02 02:39] VITALS: BP 163/95; PULSE 77; RESP 16; TEMP 36.1; O2SAT 100; BMI 36.2
[2022-09-02] MEDS: oxyCODONE 5 MG Tablet 10 MG PO (03:23)
--- NOTE | 2022-09-02 03:24 | RAD_ITS ---
STUDY: X-RAY - RIGHT KNEE REASON FOR EXAM: Female, 51 years old. pain TECHNIQUE: 4 view(s) of the knee. COMPARISON: None. FINDINGS: Normal visualized distal femur. Normal visualized proximal tibia and fibula. Normal proximal tibiofibular articulation. Moderate medial joint space narrowing with tricompartment osteophytes. No joint effusion. RAD/Knee 4 or More Views IMPRESSION: Tricompartment osteophytes with medial joint space narrowing. Electronically Signed: Mulugeta Coronado MD at 3:40 EST Reading Location ID and State: [id number] / , Service support ,
--- NOTE | 2022-09-02 04:28 | EX.ED.DYSGE1 ---
HPI History of Present Illness Chief Complaint: Lower Extremity Injury Narrative Narrative: Patient is a 51-year-old female with past medical history of hypertension. She states that over the past 5 to 7 days she has had pain in the right knee region without any type of acute trauma. She states she feels the pain is more along the posterior aspect of the knee and radiates down to the calf and foot. She states it seems to worsen whenever she tries to extend or flex her leg at the knee. She denies any recent surgery travel or history of DVT/PE. She states that it is to the point where she is having difficulty walking secondary to the pain and therefore comes in for evaluation [facility] Medical History AVNRT (AV ortiz re-entry tachycardia) Essential hypertension SVT (supraventricular tachycardia) Home Medications oxycodone-acetaminophen 5 mg-325 mg tablet (Percocet) 1 tab PO Q6H PRN pain 3 days #12 tabs 09/02/22 [Rx Last Taken Unknown] Allergy/AdvReac Type Severity Reaction Status Date / Time Isothiazolinones Allergy Rash Verified 09/02/22 02:41 Penicillins Allergy Rash Verified 09/02/22 02:41 Family History Mother Hypertension Father Hypertension Surgical History H/O wisdom tooth extraction History of radiofrequency ablation procedure for cardiac arrhythmia (03/14/20) History of tonsillectomy Hx of tubal ligation Social History Smoking Status: Never smoker alcohol intake: never substance use type: does not use caffeine: No ROS ROS ED Constitutional Constitutional ED: Denies chills or fever(s) ENT ENT ED: Denies sore throat Cardiovascular Cardiovascular: Denies chest pain Respiratory/Chest Respiratory/Chest: Denies cough or dyspnea Gastrointestinal Gastrointestinal: Denies abdominal pain, diarrhea, nausea or vomiting Genitourinary Genitourinary ED: Denies dysuria Musculoskeletal Musculoskeletal: Reports other Details: Positive right knee pain ; Denies back pain Integumentary Denies rash Neurologic Neurologic: Denies headache(s) Hematologic/Lymphatic Hematologic/Lymphatic: Denies easy bleeding or easy bruising EXAM Physical Exam Const Vital Signs: 09/02/22 02:39 Temperature 97.0 F L Temperature Source Temporal Pulse Rate 77 Respiratory Rate 16 Blood Pressure 163/95 H Blood Pressure Mean 117 Pulse Ox 100 Oxygen Delivery Method Room Air Positive well nourished, well developed and obese General Appearance ED: well developed Nutritional Appearance: obese Eyes PERRL and EOMs intact bilaterally Neck supple and no JVD Resp normal respiratory effort and clear to auscultation bilaterally Cardio regular rate and regular rhythm Extremity Extremity Narrative: Right lower extremity is neurovascularly intact. There is no obvious bony deformity or joint effusion. Patellar tendon is intact and knee ligaments are stable. There is no asymmetric edema asymmetric erythema or warmth noted of the posterior calf. Patient has pain with extension and flexion of the right leg at the knee. Otherwise remainder of the exam is normal Neuro oriented x3 and CN's II-XII intact bilaterally Sensorium / Orientation: alert Psych mental status grossly normal Skin no rashes or lesions noted MDM MDM MDM Narrative Medical decision making narrative: Patient presented to the ER hypertensive but has a past medical history of this and with her pain this is to be expected. She does not have any recent surgery travel or history of DVT/PE and there is no physical exam findings to suggest this. However with her right knee/calf pain with no trauma a venous duplex will be ordered an outpatient basis as I cannot perform it at this time a night. However as she is low risk for DVT do not feel there is need for prophylactic anticoagulation. An x-ray was obtained which showed arthritic changes without fracture or dislocation. At this time I feel the patient's symptoms are related to arthritis with possible nervous compression secondary to this. She will be given pain medication to help control symptoms and will be advised to follow-up with orthopedics to discuss need for further testing or treatment options. However at this time as there is no obvious signs of infection there is no bony deformity fracture or joint effusion there is no need for further work-up and she is otherwise safe for discharge. Radiography Diagnostic Testing: Clinical Impression(s) from Imaging Studies Knee X-Ray 09/02/22 03:24 IMPRESSION: Tricompartment osteophytes with medial joint space narrowing. Electronically Signed: Mulugeta Coronado MD at 3:40 EST Reading Location ID and State: [id number] Gabriel MD , Service support , Right knee x-ray as interpreted by the emergency medicine physician reveals arthritic changes without acute fracture or dislocation Discharge Plan Triage Chief Complaint: Lower Extremity Injury ED Provider: Navjot Malagon Dx/Rx/DC Orders Clinical Impression: Knee pain, right, Osteoarthritis of right knee, Essential hypertension Instructions: Arthritis: Exercise, ED Knee Pain of Uncertain Cause Prescriptions: New oxycodone-acetaminophen [Percocet] 5-325 mg tablet 1 tab PO Q6H PRN (Reason: pain) 3 Days Qty: 12 0RF Other Ambulatory Orders: Venous Duplex US, Unilateral (Stat) Facility: [facility] - Location: [facility] Ordered By: Dr. Navjot Malagon Primary Care Provider: [facility] Referrals: [facility] [Other] Rudy Noel DO [Med Staff - Active Staff] - Activity Restrictions/Additional Instructions: Your x-ray shows osteoarthritic changes but no fractures or dislocations. I feel your symptoms are related to the arthritis and possible nervous compression. Return for your outpatient venous duplex to ensure there is no blood clot but ultimately follow-up with orthopedics to discuss further testing and treatment options. Disposition Disposition: Home, Self Care Discharge Date/Time: 09/02/22 04:57
== END 2022-09-02 04:57 | disposition home or self-care (01) ==
PROVIDERS: Emergency Provider Emergency Medicine; Visit Provider Emergency Medicine
DX: M17.11 Unilateral primary osteoarthritis, right knee (principal); I10 Essential (primary) hypertension; E66.9 Obesity, unspecified
CPT/HCPCS: 73564; 99284

== ENCOUNTER → 2022-09-02 | Outpatient (CLI) | payer BC, SELFPAY ==
--- NOTE | 2022-09-02 12:17 | VDLE_ITS ---
Reason For Study: LEG PAIN RIGHT LEFT GSV is normal. CFV is compressible, spontaneous, phasic, CFV is compressible, spontaneous, phasic, competent, and demonstrates normal competent and demonstrates normal augmentation. augmentation. FV is compressible, spontaneous, phasic, competent and demonstrates normal augmentation. POP V is compressible, spontaneous, phasic, competent and demonstrates normal augmentation. T/P Trunk is compressible. PTV is compressible. RT PerV is compressible. Procedure This is a venous duplex using B-mode, color flow and spectral Doppler. Exam performed in department. The exam was diagnostic. A preliminary report was called and/or faxed to ED Nurse Manuel. VL/Venous Duplex US, Unilateral Interpretation Summary Deep veins of the right lower extremity are patent and compressible segmentally . There is no evidence of right lower extremity deep vein thrombosis. Valvular competence nick ears intact within the proximal deep venous system on the right . The right great saphenous vein a ppears patent and compressible segmentally. Ordering Physician: Navjot Malagon Referring Physician: Navjot Malagon Performed By: Konstantin Wylie, RVT
== END | disposition home or self-care (01) ==
LOC: US 12:13
PROVIDERS: Referring Provider Emergency Medicine; Visit Provider Emergency Medicine
DX: M79.604 Pain in right leg (principal)
CPT/HCPCS: 93971